=== PATIENT | female | born 1945 | race Caucasian/White ===

== ENCOUNTER → 2021-01-30 | Outpatient (CLI) | payer MEDICARE, OTHER ==
[~2021-01-30] MED LIST: ESTR.05PBW TOP; FEXO60 PO; GLUCHON PO; LANS30EC PO; LEVSOD150 PO; MELO7.5 PO; POTCIT5 PO
== END | disposition home or self-care (01) ==
LOC: LAB SHORT 11:09 → LAB 11:09
DX: D22.5 Melanocytic nevi of trunk (principal)
CPT/HCPCS: 88305

== ENCOUNTER → 2021-02-13 | Outpatient (CLI) | payer MEDICARE, OTHER | END | disposition home or self-care (01) | LOC: LAB SHORT 12:13 → LAB 12:13 | DX: D22.5 Melanocytic nevi of trunk (principal) | CPT/HCPCS: 88305 ==